=== PATIENT | female | born 1980 | race Caucasian/White ===

== ENCOUNTER 2023-08-29 10:54 | Emergency (ER) | payer MEDICAID, MEDICARE ==
[2023-08-29 11:02] VITALS: BP 142/63; PULSE 76
[2023-08-29 11:51] LABS: CORONAVIRUS COVID-19 NAA NEGATIVE (NEGATIVE); INFLUENZA A NAA NEGATIVE (NEGATIVE); INFLUENZA B NAA NEGATIVE (NEGATIVE); RESPIRATORY SYNCYTIAL VIR NAA NEGATIVE (NEGATIVE)
== END 2023-08-29 12:34 | disposition home or self-care (01) ==
LOC: VM.ED 10:54
DX: J84.9 Interstitial pulmonary disease, unspecified (principal)
CPT/HCPCS: 0241U; 71045; 99283